=== PATIENT | female | born 1945 | race Caucasian/White ===

== ENCOUNTER 2017-02-05 22:31 | Emergency (ER) | payer MEDICARE ==
[~2017-02-05] VITALS: Ht 162.6 cm; Wt 94.0 kg
[2017-02-05] MEDS ORDERED: SPIR25TA3 PO (22:49)
[2017-02-05] MEDS ORDERED: MULT-516 PO (22:49)
[2017-02-05] MEDS ORDERED: LOSA25TA5 PO (22:49)
[2017-02-05] MEDS ORDERED: ASPI-496 PO (22:49)
[2017-02-05] MEDS ORDERED: SODIUM CHLORIDE 0.9% 1,000ML IVBOLUS ONE (23:00)
[2017-02-05 23:19] LABS: BLOOD UREA NITROGEN 16 mg/dL (7-18)
[2017-02-05 23:26] LABS: IS PT STATUS REG ER OR PRE ER? YES
[2017-02-06 02:35] VITALS: BP 140/93
== END 2017-02-06 02:37 | disposition home or self-care (01) ==
LOC: ED 23:17
DX: R55 Syncope and collapse (principal); R00.1 Bradycardia, unspecified; I10 Essential (primary) hypertension; Z87.891 Personal history of nicotine dependence
CPT/HCPCS: 36415; 71010; 80048; 81003; 82040; 84484; 85025; 93005; 96360; 99285; J7030